=== PATIENT | female | born 1985 | race Two or more races ===

== ENCOUNTER 2020-01-10 12:57 | Emergency (ER) | payer MEDICAID ==
[~2020-01-10] VITALS: Ht 165.1 cm; Wt 84.8 kg
[2020-01-10 13:15] VITALS: BP 141/104
[2020-01-10] MEDS ORDERED: METHOCARBAMOL 500 MG TAB PO ONE (14:00)
[2020-01-10] MEDS ORDERED: KETOROLAC TROMETH 60MG/2ML VIAL IM ONE (14:00)
== END 2020-01-10 14:41 | disposition home or self-care (01) ==
LOC: EDBD 12:57 → EDUNIT# 12:57 → ER 12:57
DX: S29.011A Strain of muscle and tendon of front wall of thorax, initial encounter (principal); X50.0XXA Overexertion from strenuous movement or load, initial encounter; X50.9XXA Other and unspecified overexertion or strenuous movements or postures, initial encounter; Y93.89 Activity, other specified; Y92.89 Other specified places as the place of occurrence of the external cause; Y99.8 Other external cause status
CPT/HCPCS: 71101; 96372; 99283; J1885

== ENCOUNTER 2020-02-07 16:12 | Emergency (ER) | payer MEDICAID ==
[~2020-02-07] VITALS: Ht 165.1 cm; Wt 84.8 kg
[2020-02-07] MEDS ORDERED: TETANUS-DIPTH-ACEL PERTUSSIS 0.5ML SYR Tdap IM ONE (17:15)
[2020-02-07 17:26] VITALS: BP 161/80
== END 2020-02-07 17:53 | disposition home or self-care (01) ==
LOC: ER 16:12
DX: S01.511A Laceration without foreign body of lip, initial encounter (principal); W07.XXXA Fall from chair, initial encounter; Y93.89 Activity, other specified; Y92.89 Other specified places as the place of occurrence of the external cause; Y99.8 Other external cause status
CPT/HCPCS: 12011